=== PATIENT | female | born 1995 | race Two or more races ===

== ENCOUNTER 2025-09-06 11:05 | Emergency (ER) | payer SELFPAY ==
[2025-09-06 11:38] VITALS: BP 129/84; PULSE 69; RESP 17; TEMP 36.3; O2SAT 99; BMI 34.9
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
== END 2025-09-06 12:06 | disposition home or self-care (01) ==
LOC: SERX 11:54
PROVIDERS: Emergency Provider Nurse Practitioner Family; PCP Family Medicine
DX: M54.2 Cervicalgia (principal); M25.519 Pain in unspecified shoulder; V43.52XA Car driver injured in collision with other type car in traffic accident, initial encounter
CPT/HCPCS: 99281